=== PATIENT | male | born 1935 | race Caucasian/White ===

== ENCOUNTER 2017-08-28 10:18 | Inpatient (IN) | payer OTHER ==
[~2017-08-28] VITALS: Ht 182.9 cm; Wt 88.2 kg
--- NOTE | ~2017-08-28 | 2DMMODE ---
[facility] [address] [place] [address] 2 D/M-MODE ECHOCARDIOGRAM Name: EBONIELUIS ANTONIO Room #: 204-P ADM IN M.R.#: [id number] Admission: 08/28/17 Attend Phys: Daniel Bryan, Discharge: Date of : 37 Date of Service: 09/05/17 1000 Report #: [id number] THIS REPORT FOR: //name// APPROVED REPORT Study performed: 09/05/2017 09:01:38 EXAM: Comprehensive 2D, Doppler, and color-flow Echocardiogram Patient Location: Bedside Room #: 204 Status: routine BSA: 2.05 BP: 111/63 mmHg Other Information Study Quality: Technically Difficult/Adequate Technically limited study due to inability to position patient, a-fib. Indications Hypertension/HDD A-fib with RVR 2D Dimensions RVDd: 32.18 mm LVEF(%): 54.59 (>50%) IVSd: 10.68 (7-11mm) LVOT Diam: 23.88 (18-24mm) LVDd: 56.52 mm PWd: 10.86 (7-11mm) Ascending Ao: 33.74 (22-36mm) LVDs: 40.31 (25-40mm) Aortic Root: 39.10 mm IVC: 13.00 mm Caro's LVEF: 54.59 % Volumes Left Atrial Volume (Systole) Single Plane 4CH: 62.65 mL Single Plane 2CH: 47.55 mL LA ESV Index: 30.00 mL/m2 Aortic Valve AoV Peak Panchito.: 1.37 m/s AO Peak Gr.: 7.47 mmHg LVOT Max P.51 mmHg LVOT Max V: 1.06 m/s LIV Vmax: 3.48 cm2 Mitral Valve [facility] [place] [address] 2 D/M-MODE ECHOCARDIOGRAM Name: TONO LOOMISN Room #: 204-[facility] IN M.R.#: [id number] Admission: 08/28/17 Attend Phys: Daniel Bryan, Discharge: Date of : 37 Date of Service: 09/05/17 1000 Report #: [id number] MV Decel. Time: 136.15 ms MV E Max Panchito.: 1.09 m/s Pulmonary Valve PV Peak Panchito.: 1.12 m/s PV Peak Gr.: 4.98 mmHg Tricuspid Valve RAP Estimate: 5.00 mmHg Left Ventricle Left ventricle is borderline dilated. There is normal left ventricular wall thickness. Left ventricular systolic function is mildly decreased. LVEF is 45-50%. This study is not technically sufficient to allow evaluation of the LV diastolic function due to atrial fibrillation. Right Ventricle The right ventricle is normal size. The right ventricular systolic function is normal. Atria The left atrium size is normal. The right atrium size is normal. Aortic Valve The aortic valve is normal in structure. No aortic regurgitation is present. There is no aortic valvular stenosis. Mitral Valve The mitral valve is normal in structure. Mild mitral regurgitation. No evidence of mitral valve stenosis. Tricuspid Valve The tricuspid valve is normal in structure. There is no tricuspid valve regurgitation noted. Pulmonic Valve The pulmonary valve is normal in structure. Trace pulmonic regurgitation. Great Vessels The aortic root is normal in size. IVC is normal in size and collapses >50% with inspiration. Pericardium There is no pericardial effusion. [facility] [address] [place] [address] 2 D/M-MODE ECHOCARDIOGRAM Name: LUIS ANTONIO LOOMIS Room #: 204-P ADM IN M.R.#: [id number] Admission: 08/28/17 Attend Phys: Daniel Bryan, Discharge: Date of : 37 Date of Service: 09/05/17 1000 Report #: [id number] <Conclusion> Left ventricular systolic function is mildly decreased. LVEF 45-50%. Study performed in afib w/RVR The aortic valve is normal in structure. No aortic regurgitation or stenosis The mitral valve is normal in structure. Mild mitral regurgitation. Pulmonary artery pressure could not be reliably ascertained There is no pericardial effusion. <ELECTRONICALLY SIGNED> By: Michael Dunn MD, [facility] 09/05/17 1000 1000 1000 Michael Dunn MD, FACC /INF
--- NOTE | ~2017-08-28 | EKG ---
[place] [address] [facility] [place] [address] ELECTROCARDIOGRAM REPORT Name: TONO LOOMISN Room #: 247-P ADM IN M.R.#: [id number] Admission: 08/28/17 Attend Phys: Daniel Bryan DO Discharge: Date of : 37 Report #: [id number] THIS REPORT FOR: //name// [facility] Test Date: 2017-09-07 Test Time: 13:05:50 Pat Name: LUIS ANTONIO LOOMIS Department: Room: 247 P Gender: M Green Hide Inspector: NATHANIEL : 1935 Requested By: Joe Hyatt Order Number: [id number] MD: Joe Hyatt Measurements Intervals [place] Rate: 99 P: -51 NC: 110 QRS: -18 QRSD: 129 T: 206 QT: 400 QTc: 514 Interpretive Statements Sinus or ectopic atrial tachycardia Atrial premature complex Right bundle branch block Repol abnrm suggests ischemia, diffuse leads Electronically Signed On 09-08-2017 8:45:05 CDT by Joe Hyatt [email or web address] <ELECTRONICALLY SIGNED> By: Joe Hyatt MD 09/08/17 0845 04 04 Joe Hyatt MD /DONIS
--- NOTE | ~2017-08-28 | S ---
[facility] [place] [place] [address] SURGICAL PATH RPT PROCEDURE Name: DUDLEY MAY Room #: 463-P ADM IN M.R.#: [id number] Admission: 08/28/17 Date of : 37 Discharge: Report #: [id number] Path Case #: [id number] PATHOLOGY REPORT COLLECTION DATE: 09/02/2017 RECEIVED DATE: 09/03/2017 SUBMITTING PHYS: Dr. Sawyer Inman OTHER PHYS: Dr. Daniel Wilson SPECIMEN(S) RECEIVED: A.Mesenteric mass B.Sacral tissue * * * * * * * * * * * * FINAL DIAGNOSIS: A. "Mesenteric mass", excisional biopsy: - Discrete focus of fat necrosis. B. "Sacral tissue", debridement: - Skin and subcutaneous tissue with acute and chronic inflammation, necrosis, granulation tissue, fibrosis, fat necrosis and overlying pseudoepitheliomatous hyperplasia. (CLW:donal; 09/04/2017) PATHOLOGIST: Emelia Bagley M.D. REPORT ELECTRONICALLY SIGNED BY: Emelia Bagley M.D. DATE/TIME: 09/04/2017 14:55 * * * * * * * * * * * * GROSS PATHOLOGY: A. The specimen is received in formalin, labeled "Dudley May and mesenteric mass", is a mckeon-white to yellow encapsulated indurated soft tissue measuring 1.6 x 1.0 x 0.3 cm. Sectioning reveals dark brown hemorrhagic cut surface. The specimen is entirely submitted in A1. B. The specimen is received in formalin, labeled "Dudley May and sacral tissue", is received in two portions the largest is a mckeon-alvarenga to yellow necrotic and indurated soft tissue partially colored by alvarenga-white and mckeon-alvarenga necrotic skin measuring 9.5 x 8.0 x 3.5 cm. The second portion is a necrotic similar to the larger portion and measures 2.5 x 2.2 x 1.5 cm. Sectioning reveals a necrotic cut surface. Tooling Supervisor sections submitted as follows: B1 largest fragment, alvarenga-white skin and underlying necrotic soft tissue B2 largest fragment, necrotic skin and underlying soft tissue B3 sectioned from second portion [place] [address] [place] [address] SURGICAL PATH RPT PROCEDURE Name: DUDLEY MAY Room #: 463-P ADM IN M.R.#: [id number] Admission: 08/28/17 Date of : 37 Discharge: Report #: [id number] Path Case #: [id number] (SWS; 09/03/2017) CLINICAL HISTORY: Sacral wound INITIAL CPT CODE(S): A; 83338 B; 03777 Professional services performed by [facility] at [facility] [address] [place] [address] Technical services performed by [facility] at [address] [place] [address], [facility] [place] [address], [place] [address]. [facility] [address] [address] PHONE: [phone] DIRECTOR: Pop Rich M.D. * * * END OF REPORT * * *
--- NOTE | ~2017-08-28 | HC ---
[facility] [place] [address] CONSULTATION Name: EBONIELUIS ANTONIO Room #: 247-P ADM IN M.R.#: [id number] Admission: 08/28/17 Attend Phys: Daniel Bryan DO Discharge: Date of : 37 Report #: [id number] THIS REPORT FOR: //name// CC: Dr. Donald FAM physician/PCP Daniel Aguayo DATE OF SERVICE: 09/09/2017 REQUESTING PHYSICIAN: Dr. Donald. CHIEF COMPLAINT: Acute hypoxic respiratory failure. HISTORY OF PRESENT ILLNESS: The patient is an 82-year-old male who presented to [facility] on 08/28/2017, presented from [facility]. He was actually a direct admit from the wound clinic for bilateral nonhealing gluteal wounds. These have been present for several months now. The patient had received previous care including antibiotics; however, has not had significant improvement of these, initially with a known history of CVA and left hemiparesis. The patient has also had bladder cancer and apparently also CAD, atrial fibrillation. Unfortunately, the patient appeared to have developed aspiration pneumonia at some time, also pleural effusion secondary to atrial fibrillation with RVR and has had increased respiratory distress since this time. He has had increased white blood cell count, most recently 25.4 despite therapy. The patient appears to be overall worsening condition. Discussion has been had with the patient's son, Renaldo, with regards to palliative care. He is amenable to this at this time, the patient is currently DNR/DNI status. The patient is having some difficulty with current medical management of both air hunger and pain. He is awake enough and alert enough to answer yes or no questions. He appears to answer appropriately at this time. He does report that he is in pain, appears to be in sacral area. He also is short of breath and desires medical treatment for this at this time. PAST MEDICAL HISTORY: Significant for breast cancer, bladder cancer, CAD, hypertension, hyperlipidemia, atrial fibrillation, pressure ulcers, CVA with left hemiplegia, dysphagia, tobacco abuse, protein-calorie malnutrition, hypertension, elevated LFTs. PAST SURGICAL HISTORY: Urostomy, PEG placement, colostomy, the PEG and colostomy were placed during this most recent hospitalization to attempt to improve his wound care overall. SOCIAL HISTORY: Son is currently medical decision maker. He is currently in [place], but is coming back to the [place] area tomorrow. Tobacco abuse as [facility] [address] [place] [address] CONSULTATION Name: LUIS ANTONIO LOOMIS Room #: 247-P [facility] IN [facility]#: [id number] Admission: 08/28/17 Attend Phys: Daniel Bryan DO Discharge: Date of : 36 Report #: [id number] previously noted. ALLERGIES: OXYCODONE AND TYLENOL. THESE WERE IN THE FORM OF PERCOCET, WHICH CAUSED CONFUSION PREVIOUSLY. FAMILY HISTORY: Noncontributory. PHYSICAL EXAMINATION: GENERAL: The patient is alert to verbal stimuli, unable to respond appropriately to all questions. He responds in yes or no by head shakes, occasionally verbally saying no. HEENT: Extraocular muscles appear to be intact. RESPIRATORY: Does have clear to auscultation lung sounds; however, he is in some respiratory distress with mild accessory muscle use and he is tachypneic at this time. CARDIOVASCULAR: Irregularly irregular rate and rhythm. Tachycardic. ABDOMEN: Soft, mildly tender diffusely. He does have an abdominal binder in place and colostomy in place. LABORATORY DATA: Include hemoglobin 8.4, creatinine 2.8. White blood cells 25.4. ASSESSMENT AND PLAN: 1. Acute hypoxic respiratory failure. At this point in time, the patient is experiencing some increase in dyspnea. He has on increased level of oxygen. At this point in time, to maintain comfort we are dosing morphine at this current point. We will be aggressive with this. I have already increased the dosing. Nursing staff had increased from 2 to 4 mg. We are increasing to 6 now. We will monitor for 20 minutes. May need increases further from that, maybe switch to Dilaudid, maybe continuous morphine drip depending on what our ability to achieve comfort is. The patient continues to have pain as well, which will need to be managed as well. He does have Ativan as needed for anxiety, although this does not appear to be anxiety driven for the most part. I did discuss this with the son today. He is amenable to any current changes in medications. In addition, we discussed transfer possibility to inpatient hospice facility. He is amenable to this, but again we discussed achieving comfort level prior to discharge. 2. Aspiration pneumonia. I appreciated previous Pulmonology consultations. Again, we are aiming to achieve comfort as above. 3. Pleural effusion. As above. 4. Decubitus wounds. I did discuss with Wound Care team today. We will hold off on further wound care changes considering the patient may be in significant pain with these. 5. Acute renal failure. Again, this may be contributing to his overall difficulties with pleural effusions. In addition, this may cause some retention of morphine products. Ordinarily, we might have switched to oxycodone due to [facility] [address] [place] [address] CONSULTATION Name: LUIS ANTONIO LOOMIS Room #: 247-P ADM IN M.R.#: [id number] Admission: 08/28/17 Attend Phys: Daniel Bryan DO Discharge: Date of : 36 Report #: [id number] this, but given this patient's critical state we will continue with morphine, in addition may consider a morphine drip here in the future to control the patient's discomfort better. I will continue to follow along with this patient. Thank you very much for the consultation. By: [id number] [id number] Uriel Deng DO /nt
--- NOTE | ~2017-08-28 | O ---
[facility] [place] [address] OPERATIVE REPORT Name: TONO LOOMISN Room #: 463-P [facility] IN M.R.#: [id number] Admission: 08/28/17 Attend Phys: Daniel Bryan DO Discharge: Date of : 36 Report #: [id number] THIS REPORT FOR: //name// CC: [facility] physician/PCP Daniel Aguayo DATE OF SERVICE: 09/02/2017 PREOPERATIVE DIAGNOSES: 1. Unstageable bilateral gluteal decubitus ulcers. 2. History of cerebrovascular accident. 3. History of bladder cancer, status post urostomy. 4. Protein-calorie malnutrition. POSTOPERATIVE DIAGNOSES: 1. Stage 4 sacral decubitus ulcer. 2. History of cerebrovascular accident. 3. History of bladder cancer, status post urostomy. 4. Protein-calorie malnutrition. PROCEDURES: 1. Laparoscopic assisted diverting end descending colostomy. 2. Laparoscopic assisted PEG placement (20-Upper Sorbian pull type). 3. Laparoscopic lysis of adhesions. 4. Excisional debridement of stage 4 sacral decubitus ulcer with removal of skin, subcutaneous tissue, muscle and bone with starting size of 4 cm long x 3.5 cm wide on the left, 5 cm x 5 cm on the right and then ending size of 13.5 cm x 15 cm (with a total area of 202.5 cm2). SURGEON: Sawyer Inman M.D. DBAS: Erika Wilson M.D. ANESTHESIA: General endotracheal anesthesia and local anesthetic. ESTIMATED BLOOD LOSS: 50 mL. SPECIMEN: Skin, subcutaneous tissue, muscle and sacrum. COMPLICATIONS: None appreciated. INDICATIONS FOR PROCEDURE: This is an 82-year-old male patient who has developed bilateral gluteal decubitus ulcers. He was transferred from the [facility] and has had difficulty with pain and malodorous drainage. His ulcers are unstageable. The patient has been on Eliquis and this [facility] [address] [place] [address] OPERATIVE REPORT Name: TONO LOOMISN Room #: 463-P [facility] IN ..#: [id number] Admission: 08/28/17 Attend Phys: Daniel Bryan DO Discharge: Date of : 36 Report #: [id number] has been held appropriately for today's operation. The patient was also found to be protein-calorie malnourished with hypoalbuminemia. He would benefit from PEG tube placement for nutritional support, diverting colostomy to optimize the healing environment for the wound and excisional debridement of the decubitus ulcers. All are indicated. DESCRIPTION OF PROCEDURE IN DETAIL: After the risks, benefits and expectations of the operation were discussed in detail with the patient and his son, Renaldo, informed consent was obtained. The patient was identified in the preoperative holding area. He had been receiving scheduled IV antibiotics. He was taken to the Operating Room and placed in the supine position. He was then given IV sedation and he was intubated after SCDs were placed on the patient's bilateral lower extremities and pneumatic compression was initiated. The patient was then placed in the supine position on the Operating Room table. His bilateral gluteal area was prepped and draped in the standard sterile fashion. A time-out was then performed to identify the correct patient and procedure. Excisional debridement was undertaken first. Each area was measured and tunneling was present extending in cephalad direction greater on the left side. After excising both areas, a very narrow, nonviable skin bridge would be present. Necrotic tissue extending across the bridge after removing the tissue, local anesthetic was infiltrated into the skin and subcutaneous tissue for the planned incision. A sharp #10 blade scalpel was used to make an incision through the skin and down to healthy bleeding tissue, which was directly overlying the sacrum. Excision involved skin, subcutaneous tissue and muscle. Cultures were taken to be sent for aerobes, anaerobes and fungus. The excised tissue was then removed and bleeding points were made hemostatic with electrocautery. The exposed sacrum was soft and this was felt to represent osteomyelitis. The outer table was then removed with a rongeur. The marrow was debrided down to more healthy appearing marrow. The bone was sent separately. Bleeding points were made hemostatic. Cultures were taken from the bone as well to be sent for aerobes, anaerobes and fungus. The wound was then irrigated and again bleeding points were made hemostatic with electrocautery. The [employer] ultrasound device was then used on the entire surface area of the wound. While doing so, cautery was used to achieve hemostasis. The wound was then packed with 1:1 Betadine:Normal saline. ABDs and mesh briefs were then placed. The patient was then returned to the supine position having tolerated this portion of the procedure well. The patient was placed back on the Operating Room table in the supine position. He remained intubated and sedated. Placement of the PEG tube was attempted next. The gastroscope was inserted in the patient's oropharynx, passed down the esophagus down the esophagus and into the stomach. I then attempted to transilluminate the stomach and abdominal wall and was unable to do so. There was no direct ballotability of the stomach with palpation from the outside. Decision was made to access abdominal access the patient's abdominal cavity [address] [address] OPERATIVE REPORT Name: LUIS ANTONIO LOOMIS Room #: 463-P [facility] IN ..#: [id number] Admission: 08/28/17 Attend Phys: Daniel Bryan DO Discharge: Date of : 36 Report #: [id number] laparoscopically. Local anesthetic was infiltrated into the skin and subcutaneous tissue in the left subcostal area where a small transverse incision was made. A 5-mm Visiport was then placed intraperitoneally with a 0-degree angled laparoscope. Pneumoperitoneum was achieved with insufflation of carbon dioxide to 15 mmHg. An additional 5 mm port was placed in the left lower quadrant of the abdomen, again under direct visualization using the same technique. Adhesions from the omentum to the anterior abdominal wall were then carefully taken down. The patient has a history of urostomy and multiple plastered intraabdominal adhesions were present. After carefully taking down enough of the scar tissue to access the abdominal wall, a 12 mm port was placed transfascially under direct visualization in the midline. Further adhesiolysis was undertaken after ensuring no bowel involvement in the areas divided. The bowel was plastered to the upper midline. Using these 3 ports, the PEG tube was able to be placed without difficulty. The stomach was insufflated with carbon dioxide and an appropriate area was chosen for placement of the tube through the abdominal wall. Local anesthetic was infiltrated into the skin and subcutaneous tissue and a sharp #15 blade scalpel was used to make the incision. An 18-gauge needle with catheter was then advanced through the incision and directed into the stomach seen endoscopically. The needle was then withdrawn and the guidewire was advanced into the stomach and grasped with the scope and slowly withdrawn through the oropharynx. The guidewire was then released and connected to the pull type 20-Upper Sorbian PEG tube. From the abdominal side, the PEG tube was advanced down the patient's esophagus and then into the stomach. Using the EGD scope, the inner flange was seen abutting up against the anterior body of the stomach. The PEG tube was marked at 2 cm at the skin level. The outer flange was placed as was clamped and fitting after shortening the tube. Lap-assisted diverting end descending colostomy was undertaken next. The colon was freed from the white line of Toldt with the ultrasonic dissector. Dissection was carried along the descending colon. Colon was dissected away from the abdominal wall. A window was then made in the mesentery of the junction between the descending colon and sigmoid colon. After creating a window, the colon was divided with the 60 mm powered ASUNCION stapler with a blue load. The mesentery was then divided to free the colon enough for creation of a colostomy. The colostomy site was chosen. Local anesthetic was infiltrated into the skin and subcutaneous tissue and a small transverse incision was made. A 5 mm Visiport was placed intraperitoneally. The staple line of the colon was then grasped through this port. The incision was widened with electrocautery using the plastic portion of the port to aid with dissection and visualization. The fascial opening was dilated to 2 fingerbreadths. The staple line was then delivered through the incision and laparoscopically, there was no twisting of the mesentery. The 12 mm port site fascial opening was then closed with a [id number]-[id number] 0 PDS suture under direct visualization. The abdominal cavity was then desufflated and all ports were removed. Interrupted subcuticular 4-0 Monocryl sutures and Dermabond used to close the skin incisions. [facility] [address] [place] [address] OPERATIVE REPORT Name: LUIS ANTONIO LOOMIS Room #: 263-P [facility] IN M.R.#: [id number] Admission: 08/28/17 Attend Phys: Daniel Bryan DO Discharge: Date of : 36 Report #: [id number] Maturation of the colostomy was undertaken next. The staple line was excised and there was good blood flow from the mucosal edge. Geno-type sutures were placed at the 12, 3, 6 and 9 o'clock positions using a 3-0 Vicryl suture. Short runs of 3-0 Vicryl were then used to complete the maturation process. After completing the colostomy, the stoma was digitally examined and was patent beyond the fascial level. The mucosa remained viable with no evidence for ischemia. A 2-piece appliance was placed on both the colostomy and urostomy. The patient tolerated the procedure well. He was awakened, extubated and taken to recovery room in stable condition with no apparent intraoperative complications. <ELECTRONICALLY SIGNED> By: Sawyer Inman MD, FACS 09/04/17 1546 [id number] Sawyer Inman MD, FACS /nt
--- NOTE | ~2017-08-28 | HC ---
[facility] [place] [address] CONSULTATION Name: LUIS ANTONIO LOOMIS Room #: 463-P ADM IN M.R.#: [id number] Admission: 08/28/17 Attend Phys: Daniel Bryan DO Discharge: Date of : 36 Report #: [id number] THIS REPORT FOR: //name// CC: FAM physician/PCP Daniel Aguayo DATE OF SERVICE: 08/28/2017 WOUND CARE CONSULTATION PERSONAL PHYSICIAN: None on staff. CHIEF COMPLAINT: Bilateral gluteal ulcerations, unstageable. HISTORY OF PRESENT ILLNESS: This is an 82-year-old white male, who is a resident at [facility], and I was contacted about bringing him to the hospital for gluteal debridement of his ulcerations. The patient was transferred as a direct admission today from the skilled unit. The patient supposedly has a history of a CVA with left-sided hemiparesis and has been at a previous facility and he there was not having frequent turns and the patient unfortunately developed gluteal ulcerations. The patient himself states he does have pain associated with these areas. The patient, however, states that he needs assistance with eating, but he thinks he is actually eating appropriately. The wounds have been debrided a couple of times over the past few months at the bedside; however, it was notified that these were getting worse instead of better, which prompted him to come to the hospital for surgical debridement. I did speak with the son about this patient and he is agreeable with having his father have the debridement. 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 CURRENT MEDICATIONS: Are multiple and it does include Eliquis, which he received his dose this morning. DRUG ALLERGIES: PERCOCET. SOCIAL HISTORY: The patient has a history of [id number]-gqvh history of smoking as well as history of drinking one alcoholic drink daily. FAMILY HISTORY: Not pertinent to current diagnosis. REVIEW OF SYSTEMS: [facility] [address] [place] [address] CONSULTATION Name: TONO LOOMISN Room #: 463-P [facility] IN M.R.#: [id number] Admission: 08/28/17 Attend Phys: Daniel Bryan DO Discharge: Date of : 36 Report #: [id number] CONSTITUTIONAL: The patient denies fevers and chills. NEUROLOGIC: The patient complains of overall weakness and has associated left-sided hemiplegia, but nothing acute. EYES: No complaints. ENT: No complaints. CARDIAC: The patient denies chest pain, palpitations or peripheral edema. RESPIRATORY: The patient denies shortness breath, cough or wheezes. GASTROINTESTINAL: The patient denies nausea, vomiting or abdominal pain, but the patient is incontinent of stool. GENITOURINARY: The patient denies urgency or frequency, but does have urinary tract infection. The patient has a urostomy secondary to bladder cancer. MUSCULOSKELETAL: No complaints. SKIN: There are bilateral gluteal wounds, which are unstageable secondary to significant slough and necrotic tissue. He also has a wound to the left knee, which is a superficial abrasion. PHYSICAL EXAMINATION: VITAL SIGNS: Temperature 36.6, pulse 73, respirations 16, BP 112/62. GENERAL: This is an alert and oriented x 3, pleasant white male with obvious left-sided facial droop and some dysphagia. HEENT: Normocephalic, atraumatic. Mucous membranes are somewhat dry. Pupils are round. The patient has obvious left-sided facial drooping. NECK: Supple, without JVD. LUNGS: Slightly diminished breath sounds heard throughout. HEART: Irregularly irregular. ABDOMEN: Soft. Urostomy is in place in the right lower quadrant. Otherwise, nontender throughout the abdomen. EXTREMITIES: The patient has superficial abrasion on the knee. Bilateral heels are intact. Distal neurovascular is intact. Evaluation of bilateral gluteal areas reveals unstageable decubitus ulcers with slough and necrotic tissue. There is seropurulent drainage noted with moderate odor out of each of these ulcerations. Fatemeh-wound itself is mildly macerated with mildly increased erythema, warmth, but no signs of active cellulitis. There is minimal bleeding of the wounds themselves. NEUROLOGIC: The patient has obvious left-sided facial drooping as well as left hemiplegia. LABORATORY VALUES: White count 10.6, hemoglobin 11.0. BUN 32, creatinine 1.1. C-reactive protein is pending. Albumin is 2.2. IMPRESSION: 1. Bilateral gluteal decubitus ulcers, unstageable at this time concerning for stage IV decubitus ulcers, which appear to be infected. 2. History of cerebrovascular accident with significant debility and left-sided hemiparesis. 3. Severe protein calorie malnutrition with an albumin of 2.2. [facility] [address] [place] [address] CONSULTATION Name: LUIS ANTONIO LOOMIS Room #: 463-P ADM IN M.R.#: [id number] Admission: 08/28/17 Attend Phys: Daniel Bryan DO Discharge: Date of : 36 Report #: [id number] 4. History of bladder cancer, status post urostomy. PLAN: At this time, the patient will be admitted. Infectious Disease has been consulted for evaluation of IV antibiotics as well as General Surgery has been consulted for debridement. I did speak with the son about possible colostomy and maybe a feeding tube to reinforcing iron worker helper in the healing of these ulcerations. We will put the patient on low air loss mattress and be turned every 2 hours. Pending the surgical procedure, we will do Dakin's wet to dry dressings, 1/4 strength twice daily, cover with an ABD. Make sure we maximize the patient's oral protein supplementation for healing. We will continue to follow the patient. <ELECTRONICALLY SIGNED> By: Michele Aguayo MD 09/02/17 0933 1647 52 Michele Aguayo MD /nt
--- NOTE | ~2017-08-28 | EKG ---
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: Jasmin WERNER : 1935 Requested By: Daryl Eng Order Number: [id number] MD: Michael Dunn Measurements Intervals [place] Rate: 150 P: -60 MS: 74 QRS: -10 QRSD: 132 T: -46 QT: 314 QTc: 496 Interpretive Statements Atrial fibrillation with a rapid ventricular response Paired ventricular premature complexes Incomplete Right bundle branch block Compared to ECG 09/01/2017 12:36:19 Ventricular premature complex(es) now present Atrial fibrillation is now present Electronically Signed On 09-06-2017 8:16:50 CDT by Michael Dunn [email or web address] <ELECTRONICALLY SIGNED> By: Michael Dunn MD, [facility] 09/06/17 0816 16 16 Michael Dunn MD, [facility] /EPI
--- NOTE | ~2017-08-28 | EKG ---
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: SANDRA : 1935 Requested By: Joe Hyatt Order Number: [id number] MD: Joe Hyatt Measurements Intervals [place] Rate: 91 P: [place]: QRS: -17 QRSD: 134 T: 160 QT: 415 QTc: 511 Interpretive Statements Atrial fibrillation Right bundle branch block Nonspecific T abnormalities, lateral leads Compared to ECG 09/07/2017 13:05:50 T-wave abnormality now present Atrial premature complex(es) no longer present Early repolarization no longer present Possible ischemia no longer present Electronically Signed On 09-08-2017 19:57:21 CDT by Joe Hyatt [email or web address] <ELECTRONICALLY SIGNED> By: Joe Hyatt MD 09/08/17 1957 1144 1144 Joe Hyatt MD /EPI
--- NOTE | ~2017-08-28 | EKG ---
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 Member: dante : 1935 Requested By: Daniel Bryan Order Number: [id number] MD: Michael Dunn Measurements Intervals [place] Rate: 96 P: -39 [place]: 177 QRS: -28 QRSD: 131 T: -26 QT: 403 QTc: 510 Interpretive Statements Sinus rhythm Atrial premature complexes Right bundle branch block No previous ECG available for comparison Electronically Signed On 09-01-2017 13:08:20 CDT by Michael Dunn [email or web address] <ELECTRONICALLY SIGNED> By: Michael Dunn MD, [facility] 09/01/17 1308 1236 1236 Michael Dunn MD, FACC /EPI
--- NOTE | ~2017-08-28 | EKG ---
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
--- NOTE | ~2017-08-28 | HC ---
[facility] [place] [address] CONSULTATION Name: LUIS ANTONIO LOOMIS Room #: 463-P ADM IN M.R.#: [id number] Admission: 08/28/17 Attend Phys: Daniel Bryan DO Discharge: Date of : 36 Report #: [id number] THIS REPORT FOR: //name// CC: RAMILA physician/PCP Daniel Aguayo DATE OF SERVICE: 08/28/2017 INFECTIOUS DISEASE CONSULTATION ATTENDING PHYSICIANS: Dr. Michele Aguayo and Dr. Daniel Bryan. REASON FOR CONSULTATION: Antibiotic management. HISTORY OF PRESENT ILLNESS: The patient is an 82-year-old man residing at [facility] where he was found to have bilateral gluteal decubitus. He is transferred to [facility] for possible debridement of decubitus as well as percutaneous gastrostomy and diverting colostomy. The patient is being assisted by nurses during admission. Most of the information gathered from review of records. PAST MEDICAL HISTORY: 1. Right CVA with left-sided hemiplegia. 2. Bladder cancer, status post ileal conduit. 3. Recurrent UTIs. 4. Coronary artery disease. 5. Atrial fibrillation. 6. Dysphagia secondary to CVA. 7. Bilateral gluteal decubitus. 8. Right breast cancer. DRUG ALLERGIES: PERCOCET, DISORIENTATION. MEDICATIONS: The patient is on treatment with Benadryl, enoxaparin, famotidine, tamoxifen, cyanocobalamin, nicotine patch, multivitamin, diltiazem, hydrocodone bitartrate, tramadol p.r.n., baclofen, ondansetron, meropenem 500 mg IV every 8 hours. SOCIAL HISTORY: See H and P, old records. FAMILY HISTORY: See H and P, old records. REVIEW OF SYSTEMS: Unable to obtain. [facility] [address] [place] [address] CONSULTATION Name: LUIS ANTONIO LOOMIS Room #: 463-P [facility] IN M.R.#: [id number] Admission: 08/28/17 Attend Phys: Daniel Bryan DO Discharge: Date of : 36 Report #: [id number] PHYSICAL EXAMINATION: GENERAL: Chronically ill-appearing man, not toxic looking. VITAL SIGNS: Temperature 97.2, pulse 95, respirations 16, BP 125/86. HEENMT: Some facial asymmetry. Poor oral hygiene. NECK: Stiff. The patient is stiff all over. LUNGS: Basilar crackles. HEART: S1, S2. No gallop. ABDOMEN: With ileal conduit. Soft, no masses or megaly. EXTREMITIES: Atrophy of muscle groups. BACK: Revealed bilateral gluteal ischial decubitus, stage 4 on left and stage 2 on the right. ASSESSMENT: 1. Bilateral initial gluteal decubitus. 2. History of cerebrovascular accident, left hemiplegia. 3. History of right breast cancer. 4. History of ileal bladder secondary to bladder cancer. 5. Malnutrition. SUGGESTIONS: Recommend baseline laboratory data consisting of CBC, CMP. Culture decubitus. Start meropenem 500 mg IV every [address] Michele Aguayo and , thank you for requesting my suggestions in the care of your patient. <ELECTRONICALLY SIGNED> By: Mazin Hyatt MD 09/02/17 0942 1356 1822 Mazin Hyatt MD /nt
[2017-08-28 13:19] LABS: ABSOLUTE NEUTROPHILS 8.8 thou/uL (1.4-8.2); BASOPHILS 0.4 % (0.0-2.0); EOSINOPHILS 0.7 % (0.0-3.0); HEMATOCRIT 32.1 % (42.0-52.0); LYMPHOCYTES 5.7 % (24.0-44.0); MCH 31.1 pg (26.0-34.0); MCHC 34.1 g/dL (28.0-37.0); MCV 91.2 fL (80.0-100.0); MONOCYTES 10.1 % (1.0-8.0); PLATELET COUNT 371 thou/uL (150-400); POLYS 83.1 % (36.0-66.0); RBC 3.52 mil/uL (4.50-6.00); RDW 14.1 % (10.5-14.5); WBC 10.6 thou/uL (4.0-11.0)
[2017-08-28 13:20] VITALS: BP 112/62
[2017-08-28] MEDS ORDERED: ASPIR 8181 MG PO (14:01)
[2017-08-28] MEDS ORDERED: ARGINAID POWDE1 EACH PO (14:01)
[2017-08-28] MEDS ORDERED: LIORESAL 10 MG10 MG PO (14:03)
[2017-08-28] MEDS ORDERED: COLACE100 MG PO (14:04)
[2017-08-28] MEDS ORDERED: CARDIZEM CD120 MG PO (14:05)
[2017-08-28] MEDS ORDERED: ELIQUIS2.5 MG PO (14:06)
[2017-08-28] MEDS ORDERED: LIPITOR 20 MG T20 M1 PO (14:07)
[2017-08-28] MEDS ORDERED: HYDROCHLOROTHIA25 M2 PO (14:07)
[2017-08-28] MEDS ORDERED: LOPRESSOR50 PO (14:08)
[2017-08-28] MEDS ORDERED: MILK OF MA2400 MG/10 PO ×2 (14:10→14:11)
[2017-08-28] MEDS ORDERED: MILK OF MA400 MG/5 M PO (14:11)
[2017-08-28] MEDS ORDERED: UNICOMPLEX M TA1 TA1 PO (14:12)
[2017-08-28] MEDS ORDERED: PRILOSEC 20 MG20 MG PO (14:13)
[2017-08-28] MEDS ORDERED: NICOTINE TRANSD21 M1 (14:13)
[2017-08-28] MEDS ORDERED: NOLVADEX20 MG PO (14:15)
[2017-08-28] MEDS ORDERED: ULTRAM 50MG TAB50 MG PO (14:15)
[2017-08-28] MEDS ORDERED: VITAMIN B-12500 MCG PO (14:17)
[2017-08-28] MEDS ORDERED: PROCEL1 EACH PO (14:18)
[2017-08-28 15:56] LABS: ALBUMIN 2.2 g/dL (3.4-5.0); CREATININE 1.1 mg/dL (0.7-1.3); POTASSIUM 3.9 mmol/L (3.5-5.1); TOTAL BILIRUBIN 0.6 mg/dL (<0.1-1.0); TOTAL PROTEIN 6.2 g/dL (6.4-8.2)
[2017-08-28 17:19] LABS: URINE BILIRUBIN NEGATIVE (Negative); URINE BLOOD NEGATIVE (Negative); URINE CLARITY SL CLOUDY; URINE COLOR YELLOW; URINE GLUCOSE-RANDOM* NEGATIVE (Negative); URINE KETONES NEGATIVE (Negative); URINE NITRITE-REFLEX NEGATIVE (Negative); URINE PROTEIN (DIPSTICK) 2+ (Negative); URINE SPECIFIC GRAVITY <= 1.005 (1.005-1.035); URINE UROBILINOGEN 0.2 E.U./dl (0.2-1.0)
[2017-08-28 17:21] LABS: URINE LEUKOCYTES-REFLEX TRACE (Negative)
[2017-08-28 17:28] LABS: TRIPLE PHOSPHATE CRYSTALS 4-10 Moderate /LPF (None Seen)
[2017-08-28 17:29] LABS: BACTERIA-REFLEX >30 Many /HPF (None Seen); CASTS None Seen /LPF (None Seen); SQUAMOUS 0-3 Few /LPF (0-3); URINE RBC None Seen /HPF (0-2); URINE WBC-REFLEX 6-15 Few /HPF (0-5)
[2017-08-28 19:56] VITALS: BP 119/69
[2017-08-29 03:50] VITALS: BP 100/67
[2017-08-29 06:29] LABS: ABSOLUTE NEUTROPHILS 8.5 thou/uL (1.4-8.2); BASOPHILS 0.8 % (0.0-2.0); EOSINOPHILS 1.5 % (0.0-3.0); HEMATOCRIT 27.9 % (42.0-52.0); HEMOGLOBIN 9.8 gm/dL (14.0-18.0); MCH 31.7 pg (26.0-34.0); MCV 90.5 fL (80.0-100.0); MONOCYTES 9.5 % (1.0-8.0); PLATELET COUNT 350 thou/uL (150-400); POLYS 80.2 % (36.0-66.0); RBC 3.08 mil/uL (4.50-6.00); RDW 14.6 % (10.5-14.5); WBC 10.6 thou/uL (4.0-11.0)
[2017-08-29 06:48] LABS: CALCIUM 8.3 mg/dL (8.5-10.1); MAGNESIUM 1.9 mg/dL (1.8-2.4); POTASSIUM 3.7 mmol/L (3.5-5.1)
[2017-08-29 08:05] VITALS: BP 109/73
[2017-08-29 16:08] VITALS: BP 115/72
[2017-08-29 19:22] VITALS: BP 105/68
[2017-08-30 03:30] VITALS: BP 125/82
[2017-08-30 07:02] VITALS: BP 125/86
[2017-08-30 19:55] VITALS: BP 113/66
[2017-08-31 03:20] VITALS: BP 114/68
[2017-08-31 08:18] VITALS: BP 107/75
[2017-08-31 16:23] VITALS: BP 101/67
[2017-08-31 19:17] VITALS: BP 123/86
[2017-09-01 03:17] VITALS: BP 108/60
[2017-09-01 16:33] VITALS: BP 112/76
[2017-09-01 17:34] VITALS: BP 112/76
[2017-09-01 20:02] VITALS: BP 123/77
[2017-09-02 07:16] VITALS: BP 112/78
[2017-09-02 19:00] VITALS: BP 112/79
[2017-09-02 19:30] VITALS: BP 108/66
[2017-09-02 20:02] LABS: BE(vivo) 1.9 mmol/L (-2 to +3); HCO3 26.1 mmol/L (22.0-26.0); PCO2 39.4 mmHg (35.0-45.0); PO2 75.2 mmHg (80.0-100.0); pH 7.439 (7.360-7.450); sO2 95.6 % (92.0-98.0)
[2017-09-02 20:15] VITALS: BP 118/78
[2017-09-02 20:27] VITALS: BP 108/59
[2017-09-02 20:30] VITALS: BP 108/59
[2017-09-03] VITALS (7 sets, daily range): BP systolic 97–139; BP diastolic 59–103
[2017-09-03 02:51] LABS: ABSOLUTE NEUTROPHILS 15.5 thou/uL (1.4-8.2); BASOPHILS 0.1 % (0.0-2.0); HEMATOCRIT 24.1 % (42.0-52.0); HEMOGLOBIN 7.9 gm/dL (14.0-18.0); LYMPHOCYTES 4.1 % (24.0-44.0); MCH 30.3 pg (26.0-34.0); MCHC 32.7 g/dL (28.0-37.0); MCV 92.9 fL (80.0-100.0); MONOCYTES 6.2 % (1.0-8.0); PLATELET COUNT 367 thou/uL (150-400); POLYS 89.6 % (36.0-66.0); RBC 2.59 mil/uL (4.50-6.00); RDW 14.2 % (10.5-14.5); WBC 17.3 thou/uL (4.0-11.0)
[2017-09-03 03:05] LABS: ALBUMIN 1.6 g/dL (3.4-5.0); CALCIUM 8.2 mg/dL (8.5-10.1); CREATININE 1.6 mg/dL (0.7-1.3); MAGNESIUM 2.7 mg/dL (1.8-2.4); POTASSIUM 4.9 mmol/L (3.5-5.1); TOTAL BILIRUBIN 0.3 mg/dL (<0.1-1.0); TOTAL PROTEIN 5.4 g/dL (6.4-8.2)
[2017-09-03 12:48] LABS: CALCIUM 8.4 mg/dL (8.5-10.1); CREATININE 1.6 mg/dL (0.7-1.3); POTASSIUM 4.5 mmol/L (3.5-5.1)
[2017-09-04] VITALS (11 sets, daily range): BP systolic 106–129; BP diastolic 58–77
[2017-09-04 06:30] LABS: ABSOLUTE NEUTROPHILS 11.1 thou/uL (1.4-8.2); BASOPHILS 0.1 % (0.0-2.0); EOSINOPHILS 0.1 % (0.0-3.0); HEMATOCRIT 21.4 % (42.0-52.0); HEMOGLOBIN 7.1 gm/dL (14.0-18.0); LYMPHOCYTES 4.5 % (24.0-44.0); MCH 30.5 pg (26.0-34.0); MCHC 33.1 g/dL (28.0-37.0); MCV 92.3 fL (80.0-100.0); MONOCYTES 5.7 % (1.0-8.0); PLATELET COUNT 335 thou/uL (150-400); POLYS 89.6 % (36.0-66.0); RBC 2.32 mil/uL (4.50-6.00); RDW 14.3 % (10.5-14.5); WBC 12.4 thou/uL (4.0-11.0)
[2017-09-04 06:49] LABS: CALCIUM 8.4 mg/dL (8.5-10.1); CREATININE 1.6 mg/dL (0.7-1.3); MAGNESIUM 2.8 mg/dL (1.8-2.4); POTASSIUM 4.3 mmol/L (3.5-5.1)
[2017-09-05] VITALS (7 sets, daily range): BP systolic 107–122; BP diastolic 31–68
[2017-09-05 03:39] LABS: BASOPHILS 0.1 % (0.0-2.0); HEMATOCRIT 22.2 % (42.0-52.0); HEMOGLOBIN 7.1 gm/dL (14.0-18.0); LYMPHOCYTES 3.6 % (24.0-44.0); MCH 29.6 pg (26.0-34.0); MCHC 32.2 g/dL (28.0-37.0); MCV 91.9 fL (80.0-100.0); MONOCYTES 5.7 % (1.0-8.0); PLATELET COUNT 316 thou/uL (150-400); POLYS 90.6 % (36.0-66.0); RBC 2.41 mil/uL (4.50-6.00); RDW 15.1 % (10.5-14.5); WBC 15.4 thou/uL (4.0-11.0)
[2017-09-05 03:55] LABS: CALCIUM 8.1 mg/dL (8.5-10.1); CREATININE 1.4 mg/dL (0.7-1.3); MAGNESIUM 2.6 mg/dL (1.8-2.4); POTASSIUM 3.7 mmol/L (3.5-5.1)
[2017-09-06] VITALS (10 sets, daily range): BP systolic 97–122; BP diastolic 47–66
[2017-09-06 09:02] LABS: HEMATOCRIT 26.7 % (42.0-52.0); HEMOGLOBIN 8.5 gm/dL (14.0-18.0); MCH 29.7 pg (26.0-34.0); MCHC 31.9 g/dL (28.0-37.0); MCV 93.1 fL (80.0-100.0); RBC 2.87 mil/uL (4.50-6.00); RDW 15.5 % (10.5-14.5); WBC 20.2 thou/uL (4.0-11.0)
[2017-09-06 09:18] LABS: ALBUMIN 1.2 g/dL (3.4-5.0); CALCIUM 7.9 mg/dL (8.5-10.1); CREATININE 1.7 mg/dL (0.7-1.3); MAGNESIUM 2.4 mg/dL (1.8-2.4); POTASSIUM 4.8 mmol/L (3.5-5.1); TOTAL BILIRUBIN 0.3 mg/dL (<0.1-1.0); TOTAL PROTEIN 5.4 g/dL (6.4-8.2)
[2017-09-06 14:37] LABS: BE(vivo) -3.8 mmol/L (-2 to +3); HCO3 19.8 mmol/L (22.0-26.0); PCO2 30.3 mmHg (35.0-45.0); PO2 55.9 mmHg (80.0-100.0); pH 7.434 (7.360-7.450); sO2 90.5 % (92.0-98.0)
[2017-09-07] VITALS (40 sets, daily range): BP systolic 80–111; BP diastolic 39–75
[2017-09-07 03:13] LABS: MCH 30.3 pg (26.0-34.0); MCV 94.5 fL (80.0-100.0); RBC 2.97 mil/uL (4.50-6.00); RDW 15.8 % (10.5-14.5); WBC 26.4 thou/uL (4.0-11.0)
[2017-09-07 05:19] LABS: BE(vivo) -3.5 mmol/L (-2 to +3); HCO3 19.7 mmol/L (22.0-26.0); PCO2 29.4 mmHg (35.0-45.0); pH 7.443 (7.360-7.450); sO2 89.8 % (92.0-98.0)
[2017-09-07 05:20] LABS: PO2 53.9 mmHg (80.0-100.0)
[2017-09-07 07:12] LABS: CALCIUM 7.7 mg/dL (8.5-10.1); CREATININE 2.2 mg/dL (0.7-1.3); MAGNESIUM 2.6 mg/dL (1.8-2.4); POTASSIUM 4.1 mmol/L (3.5-5.1)
[2017-09-08] VITALS (46 sets, daily range): BP systolic 97–137; BP diastolic 36–96
[2017-09-08 06:25] LABS: HEMATOCRIT 25.8 % (42.0-52.0); HEMOGLOBIN 8.5 gm/dL (14.0-18.0); MCH 30.1 pg (26.0-34.0); MCHC 32.9 g/dL (28.0-37.0); MCV 91.7 fL (80.0-100.0); RBC 2.81 mil/uL (4.50-6.00)
[2017-09-08 06:41] LABS: CALCIUM 7.7 mg/dL (8.5-10.1); CREATININE 2.5 mg/dL (0.7-1.3); MAGNESIUM 2.6 mg/dL (1.8-2.4); POTASSIUM 4.2 mmol/L (3.5-5.1)
[2017-09-09] VITALS (26 sets, daily range): BP systolic 102–147; BP diastolic 53–120
[2017-09-09 04:08] LABS: HEMOGLOBIN 8.4 gm/dL (14.0-18.0); MCH 29.3 pg (26.0-34.0); MCHC 32.4 g/dL (28.0-37.0); MCV 90.4 fL (80.0-100.0); PLATELET COUNT 393 thou/uL (150-400); RBC 2.87 mil/uL (4.50-6.00); RDW 15.4 % (10.5-14.5); WBC 25.4 thou/uL (4.0-11.0)
[2017-09-09 04:18] LABS: CALCIUM 7.8 mg/dL (8.5-10.1); CREATININE 2.8 mg/dL (0.7-1.3); MAGNESIUM 2.6 mg/dL (1.8-2.4); POTASSIUM 4.1 mmol/L (3.5-5.1)
[2017-09-09 08:42] LABS: ABSOLUTE NEUTROPHILS 23.1 thou/uL (1.4-8.2); ANISOCYTOSIS 1+; HYPOCHROMASIA 2+; METAMYELOCYTES 1 %; MICROCYTES 2+; NUCLEATED RBCS 1 /100WBC; PLATELET ESTIMATE NORMAL; POLYCHROMASIA 1+
[2017-09-10] VITALS (17 sets, daily range): BP systolic 95–997; BP diastolic 45–72
== END 2017-09-10 07:10 | DRG 853 ==
LOC: 4W 10:18 → 2N 09-04 17:31 → 4W 09-04 17:31 → ICU 09-06 17:27
PROVIDERS: Family Medicine; Hospitalist; Internal Medicine; Internal Medicine Infectious Disease; Internal Medicine Pulmonary Disease; Nurse Practitioner; Nurse Practitioner Acute Care; Surgery
DX: A41.9 Sepsis, unspecified organism (principal); L89.324 Pressure ulcer of left buttock, stage 4; L89.154 Pressure ulcer of sacral region, stage 4; E43 Unspecified severe protein-calorie malnutrition; J96.01 Acute respiratory failure with hypoxia; J69.0 Pneumonitis due to inhalation of food and vomit; I69.354 Hemiplegia and hemiparesis following cerebral infarction affecting left non-dominant side; N17.9 Acute kidney failure, unspecified; N39.0 Urinary tract infection, site not specified; D62 Acute posthemorrhagic anemia; E87.2 Acidosis; E87.0 Hyperosmolality and hypernatremia; Z66 Do not resuscitate; F10.10 Alcohol abuse, uncomplicated; I11.0 Hypertensive heart disease with heart failure; I50.9 Heart failure, unspecified; I25.10 Atherosclerotic heart disease of native coronary artery without angina pectoris; E78.5 Hyperlipidemia, unspecified; I45.10 Unspecified right bundle-branch block; F03.90 Unspecified dementia, unspecified severity, without behavioral disturbance, psychotic disturbance, mood disturbance, and anxiety; B95.62 Methicillin resistant Staphylococcus aureus infection as the cause of diseases classified elsewhere; L89.312 Pressure ulcer of right buttock, stage 2; I48.91 Unspecified atrial fibrillation; Z85.51 Personal history of malignant neoplasm of bladder; Z87.891 Personal history of nicotine dependence; Z68.26 Body mass index [BMI] 26.0-26.9, adult; Z79.01 Long term (current) use of anticoagulants; Z79.82 Long term (current) use of aspirin; Z79.899 Other long term (current) drug therapy; Z88.8 Allergy status to other drugs, medicaments and biological substances; Z51.5 Encounter for palliative care
CPT/HCPCS: 10045; 10047; 10078; 10797; 50010; 50101; 50249; 50290; 50386; 50403; 50455; 50555; 50558; 50740; 50804; 50962; 52265; 53307; 53353; 53354; 54022; 54118; 56462; 56524; 56525; 56526; 62110; 62900; 70005